=== PATIENT | female | born 1980 | race Caucasian/White ===

== ENCOUNTER 2016-11-19 20:57 | Emergency (ER) | payer BC ==
[2016-11-19 22:37] LABS: BASOPHILS 0.7 %; BASOPHILS ABSOLUTE 0.11 10/3/uL (0.0-0.16); EOSINOPHILS 1.3 %; EOSINOPHILS ABSOLUTE 0.21 10/3/uL (0.0-0.53); ER CBC TAT 0 Hrs 07 Mins; HEMATOCRIT 39.1 % (36.0-48.0); IMMATURE GRANULOCYTES 0.3 %; IMMATURE GRANULOCYTES ABSOLUTE 0.04 10/3/uL (0.0-0.11); LYMPHOCYTES 27.8 %; LYMPHOCYTES ABSOLUTE 4.41 10/3/uL (0.67-4.30); MEAN CORPUS HGB CONC 33.2 g/dL (32.0-36.0); MEAN CORPUSCULAR HEMOGLOB 31.9 pg (26.0-34.0); MEAN CORPUSCULAR VOLUME 96.1 fL (80-100); MEAN PLATELET VOLUME 10.3 fL (9.2-13.0); MONOCYTES 7.8 %; MONOCYTES ABSOLUTE 1.24 10/3/uL (0.21-1.20); NEUTROPHILS 62.1 %; NEUTROPHILS ABSOLUTE 9.84 10/3/uL (2.02-8.40); PLATELET COUNT 262 10/3/uL (150-400); RBC DISTRIBUTION WIDTH 12.6 % (12.0-16.0); RED CELL COUNT 4.07 10/6/uL (4.0-5.6); WHITE BLOOD CELLS 15.9 10/3/uL (4.5-10.5)
[2016-11-19 22:41] LABS: MANUAL DIFF NO %
[2016-11-19 22:52] LABS: A/G RATIO 1.3 (0.7-1.9); ALBUMIN 3.8 G/DL (3.5-5.0); ALKALINE PHOSPHATASE 90 U/L (45-117); BUN (BLOOD UREA NITROGEN) 15 MG/DL (6-23); CALCIUM, SERUM 8.5 MG/DL (8.5-10.4); CHLORIDE, SERUM 106 MMOL/L (96-112); CO2 (CARBON DIOXIDE) 26 MMOL/L (24-34); CREATININE 0.93 MG/DL (0.55-1.02); GFR AFRICAN AMERICAN 92 ML/MIN (>=60); GFR NON AFRICAN AMERICAN 80 ML/MIN (>=60); GLUCOSE, SERUM 104 MG/DL (60-99); POTASSIUM, SERUM 3.8 MMOL/L (3.5-5.3); SGOT(AST) 11 U/L (5-40); SGPT(ALT) 20 U/L (5-65); SODIUM, SERUM 141 MMOL/L (135-148); TOTAL BILIRUBIN 0.5 MG/DL (0-1.2); TOTAL PROTEIN 6.8 G/DL (6.0-8.5)
[2016-11-19 23:01] LABS: ASCORBIC ACID (UR NOT ORDER) 40 (NEG); BILIRUBIN, URINE NEGATIVE (NEG); KETONE, URINE TRACE MG/DL (NEG); LEUKOCYTE ESTERASE(NOT OR TRACE (NEG); NITRITE (URINE) NEG (NEG); WBC (NOT ORDERED) (RFLEX) 4 (0-5)
[2016-11-22] MEDS ORDERED: NORA-BE0.35 MG PO (14:51)
[2016-11-22] MEDS ORDERED: ZYRTEC ALLGY10 MG PO (14:52)
[2016-11-22] MEDS ORDERED: PRILO PO (14:52)
[2016-11-22] MEDS ORDERED: PROZ10 PO (14:52)
[2016-11-22] MEDS ORDERED: ASAB PO (14:53)
== END 2016-11-20 00:05 | disposition home or self-care (01) ==
LOC: ER 20:57
PROVIDERS: Emergency Medicine
DX: N20.1 Calculus of ureter (principal); Z87.442 Personal history of urinary calculi
CPT/HCPCS: 74000; 80053; 81001; 84703; 85025; 96374; 99284; J1885

== ENCOUNTER 2016-11-23 06:16 | Day surgery (SDC) | payer BC ==
--- NOTE | ~2016-11-23 | OP ---
Record Of Operation [facility] [address] [place]. [address] NAME: MARGARET GOMEZ : 82 STATUS : [facility]#: [id number] AGE: 36 ADM/REG DATE : 11/23/16 MR#: [id number] REPORT SERV DATE: 11/23/16 DICTATED BY: CHARBEL LOW DATE: 11/23/16 REPORT STATUS : Draft TRANSCRIBED BY: MODL DATE: 11/23/16 DATE OF PROCEDURE: 11/23/2016 PREOPERATIVE DIAGNOSIS: 7 mm left mid ureteral calculus. POSTOPERATIVE DIAGNOSIS: 7 mm left mid ureteral calculus. PROCEDURES: Extracorporeal shockwave lithotripsy with 7 mm left mid ureteral calculus. SURGEON: Charbel Low M.D. ANESTHESIA: MAC. BLOOD LOSS: None. DRAINS: None. INDICATION: 36-year-old white female with symptomatic stone, left ureter, between L4 and L5. TECHNIQUE: The patient was identified and brought to the Lithotripsy Suite. She was laid on the new [employer] Challenge[employer] Delta II lithotriptor. The stone was identified with fluoroscopy and the beam was focused on the stone using biplanar fluoroscopy. Sedative was administered by the Anesthesia Service. We then initiated shockwave therapy starting at energy level 1.0 and advanced to energy level 4.0. Intermittent fluoroscopy was used to maintain focus on the stone. The stone fragmented very nicely after approximately 600 shocks. At 1700 shocks, we moved down to "bennie a piece" that was a lead fragment approximately 2 cm below the initial shockwave site. We administered 500 shocks there and that fragmented nicely. We then returned to the site of the original stone where there was still some very small fragments. We delivered the remaining 700 shocks there for a total of 3000 shocks. The patient tolerated the procedure without any apparent complications, was awakened, and taken to the Recovery Unit in stable and satisfactory condition. PF/MODL Charbel Low M.D. / [id number] CC: Yanna Barrett M.D.
[~2016-11-23 06:16] MED LIST: ASAB PO; NORA-BE0.35 MG PO; PRILO PO; PROZ10 PO; ZYRTEC ALLGY10 MG PO
== END 2016-11-23 11:50 | disposition home or self-care (01) ==
LOC: SDC 06:16
PROVIDERS: Urology
PROC: 0TF7XZZ Fragmentation in Left Ureter, External Approach (ICD-10-PCS; principal; 2016-11-23 08:00)
DX: N20.1 Calculus of ureter (principal); N83.201 Unspecified ovarian cyst, right side; K21.9 Gastro-esophageal reflux disease without esophagitis; F41.9 Anxiety disorder, unspecified; F17.210 Nicotine dependence, cigarettes, uncomplicated; Z79.82 Long term (current) use of aspirin; Z79.818 Long term (current) use of other agents affecting estrogen receptors and estrogen levels; Z79.899 Other long term (current) drug therapy; Z98.890 Other specified postprocedural states
CPT/HCPCS: 50590; 74000; 84703; J2250; J2405; J3010